=== PATIENT | male | born 1955 | race Caucasian/White ===

== ENCOUNTER 2020-04-02 18:34 | Emergency (ER) | payer SELFPAY ==
[~2020-04-02] VITALS: Ht 165.1 cm; Wt 60.3 kg
[2020-04-02 19:45] VITALS: Ht 165.1 cm; Wt 60.3 kg
[2020-04-02 20:29] LABS: UA SPECIFIC GRAVITY 1.015 (1.005-1.035); microscopic required? YES; urine erythrocyte TRACE (NEGATIVE)
[2020-04-02 21:51] VITALS: BP 93/49
== END 2020-04-02 21:52 | disposition home or self-care (01) ==
LOC: ED 18:34
PROVIDERS: Emergency Medicine
DX: N39.0 Urinary tract infection, site not specified (principal); E11.9 Type 2 diabetes mellitus without complications
CPT/HCPCS: 82962; J0696